=== PATIENT | male | born 1985 | race Caucasian/White ===

== ENCOUNTER 2024-06-20 01:45 | Emergency (ER) | payer SELFPAY ==
[2024-06-20] MEDS: Lidocaine 2% Viscous Solution 15 ML UD PO ONE (03:40)
[2024-06-20] MEDS: Benzocaine 20% Topical Spray UD MUCMEM ONE (03:40)
[2024-06-20] MEDS: Ibuprofen 800 MG Tab PO ONE (03:40)
[2024-06-20] MEDS: Acetaminophen/HYDROcodone 325-10 MG Tab PO ONE (04:08)
[2024-06-20] MEDS: Amoxicillin 500 MG Cap PO ONE (04:09)
== END 2024-06-20 04:53 | disposition home or self-care (01) ==
LOC: MW.ED 01:45
DX: K02.9 Dental caries, unspecified (principal); F17.200 Nicotine dependence, unspecified, uncomplicated
CPT/HCPCS: 99282; A9270; 99283